=== PATIENT | female | born 1935 | race Caucasian/White ===

== ENCOUNTER 2016-08-18 07:55 | Emergency (ER) | payer MEDICARE, OTHER ==
[~2016-08-18] VITALS: Ht 172.7 cm; Wt 82.0 kg
[2016-08-18 08:01] VITALS: BP 140/79; PULSE 77; RESP 22; TEMP 97.5; O2SAT 93
[2016-08-18 08:13] VITALS: O2SAT 93
--- NOTE | 2016-08-18 08:16 | PD ---
HPI Chief Complaint: abdominal, back pain Time Seen by Provider: 08:01 Travel History International Travel<30 days: No Contact w/Intl Traveler<30days: No Traveled to known affect area: No History of Present Illness HPI 80yo F who denies any PMH presents to the ED with c/o lower back pain for 3 days. States it is sharp and comes around to epigastric region. Pain is worst with movement and so severe that "it takes her breath away". Denies any sob, chest pain, fever, cough, n/v, fall, urinary complaints, incontinence, focal weakness or numbness. States her call Dr. Mark's office and told her to come in. PFSH Past Medical History ?: Not Social History Tobacco Use: No Allergies-Medications (Allergen,Severity, Reaction): Coded Allergies: KELLY Inhibitors (Verified Allergy, Unknown, Cough, 08/18/16) Reported Meds & Prescriptions Reported Meds & Active Scripts Active Lortab (Hydrocodone-Acetaminophen) 5-325 Mg Tab 1 Tab PO Q6H PRN Reported Diltiazem ER 12 HR (Diltiazem HCl) 120 Mg Caper 120 Mg PO HS Ipratropium Nasal 0.06% [place] 2 [place] EACH NARE BID Vitamin D (Cholecalciferol) 2,000 Unit Tab Eliquis (Apixaban) 5 Mg Tab 5 Mg PO BID Bystolic (Nebivolol) 20 Mg Tab 20 Mg PO DAILY Calcium with Vit D Tablet (Calcium Citrate/Vitamin D2) 1 Each Tablet 1,000 Mg Synthroid (Levothyroxine Sodium) 50 Mcg Tab 50 Mcg PO DAILY Miralax Powder (Polyethylene Glycol 3350 Powder) 17 Gm Powd 17 Gm PO DAILY Mix and dissolve one measuring cap-ful (17 grams) in water or juice. Estradiol 0.5 Mg Tab 0.5 Mg PO DAILY Atorvastatin (Atorvastatin Calcium) 40 Mg Tab 40 Mg PO HS Review of Systems Except as stated in HPI: all other systems reviewed are Neg Physical Exam Narrative GENERAL: 80yo F in mild distress. SKIN: Focused skin assessment warm/dry. HEAD: Atraumatic. Normocephalic. NECK: Trachea midline. No JVD. CARDIOVASCULAR: Regular rate and rhythm. No murmur appreciated. RESPIRATORY: No accessory muscle use. Crackles in bilateral bases. O2 sat 92% on RA. GASTROINTESTINAL: Abdomen soft, +TTP epigastric and RUQ. No rebound tenderness or guarding. BACK: No midline ttp thoracic or lumbar spine. No CVA tenderness. Pain with movement. MUSCULOSKELETAL: No obvious deformities. No clubbing. No cyanosis. No edema. NEUROLOGICAL: Awake and alert. No obvious cranial nerve deficits. Motor grossly within normal limits. Normal speech. PSYCHIATRIC: Appropriate mood and affect; insight and judgment normal. Data Data Last Documented VS Vital Signs Date Time Temp Pulse Resp B/P Pulse Ox O2 Delivery O2 Flow Rate FiO2 08/18/16 10:04 82 20 140/84 95 Room Air 08/18/16 08:01 97.5 Orders Complete Blood Count With Diff (08/18/16 08:09) Comprehensive Metabolic Panel (08/18/16 08:09) Lipase (08/18/16 08:09) Prothrombin Time / Inr (Pt) (08/18/16 08:09) Act Partial Throm Time (Ptt) (08/18/16 08:09) Urinalysis - C+S If Indicated (08/18/16 08:09) Ct Abd/Pel W Iv Contrast(Rout) (08/18/16 08:09) Iv Access Insert/Monitor (08/18/16 08:09) Ecg Monitoring (08/18/16 08:09) Oximetry (08/18/16 08:09) Electrocardiogram (08/18/16 08:09) Troponin I (08/18/16 08:09) B-Type Natriuretic Peptide (08/18/16 08:09) Chest, Single Ap (08/18/16 ) Iohexol 350 Inj (Omnipaque 350 Inj) (08/18/16 09:52) Morphine Inj (Morphine Inj) (08/18/16 10:45) Labs Laboratory Tests Test 08/18/16 08/18/16 08/18/16 08/18/16 08:30 08:39 09:00 10:15 Sodium Level 137 MEQ/L Potassium Level 4.0 MEQ/L Chloride Level 106 MEQ/L Carbon Dioxide Level 21.0 MEQ/L Anion Gap 10 MEQ/L Blood Urea Nitrogen 16 MG/DL Creatinine 0.94 MG/DL Estimat Glomerular Filtration 57 ML/MIN Rate Random Glucose 101 MG/DL Calcium Level 9.3 MG/DL Total Bilirubin 1.2 MG/DL Aspartate Amino Transf 28 U/L (AST/SGOT) Alanine Aminotransferase 18 U/L (ALT/SGPT) Alkaline Phosphatase 152 U/L Troponin I LESS THAN 0.02 NG/ML B-Type Natriuretic Peptide 301 PG/ML Total Protein 7.2 GM/DL Albumin 3.2 GM/DL Lipase 75 U/L Prothrombin Time 16.7 SEC Prothromb Time International 1.5 RATIO Ratio Activated Partial 60.5 SEC Thromboplast Time White Blood Count 12.1 TH/MM3 Red Blood Count 4.80 MIL/MM3 Hemoglobin 15.2 GM/DL Hematocrit 45.3 % Mean Corpuscular Volume 94.4 FL Mean Corpuscular Hemoglobin 31.6 PG Mean Corpuscular Hemoglobin 33.4 % Concent Red Cell Distribution Width 14.3 % Platelet Count 215 TH/MM3 Mean Platelet Volume 10.0 FL Neutrophils (%) (Auto) 63.3 % Lymphocytes (%) (Auto) 24.6 % Monocytes (%) (Auto) 9.8 % Eosinophils (%) (Auto) 1.6 % Basophils (%) (Auto) 0.7 % Neutrophils # (Auto) 7.7 TH/MM3 Lymphocytes # (Auto) 3.0 TH/MM3 Monocytes # (Auto) 1.2 TH/MM3 Eosinophils # (Auto) 0.2 TH/MM3 Basophils # (Auto) 0.1 TH/MM3 CBC Comment DIFF FINAL Differential Comment Urine Color YELLOW Urine Turbidity CLEAR Urine pH 6.0 Urine Specific [place] 1.038 Urine Protein TRACE mg/dL Urine Glucose (UA) NEG mg/dL Urine Ketones 10 mg/dL Urine Occult Blood NEG Urine Nitrite NEG Urine Bilirubin NEG Urine Urobilinogen LESS THAN 2.0 MG/DL Urine Leukocyte Esterase MOD Urine RBC 1 /hpf Urine WBC 6 /hpf Urine Squamous Epithelial 2 /hpf Cells Urine Hyaline Casts 1 /lpf Urine Mucus FEW /lpf Microscopic Urinalysis Comment CULT NOT INDICATED MDM Medical Decision Making Medical Screen Exam Complete: Yes Emergency Medical Condition: Yes Differential Diagnosis Musculoskeletal pain vs. nephrolithiasis vs. pancreatitis vs. ACS Narrative Course 80yo F here with back pain and abdominal pain. States she has had the back pain before but abdominal pain is new. Labs reviewed, WBC 12.1. Troponin negative. Bilirubin mildly elevated at 1.2. INR elevated at 1.5. CXR negative for acute disease. Compensated cardiomegaly. CTa/p showed single gallstone in gallbladder. No biliary tract obstruction. No surrounding inflammatory changes. Diverticulosis. UA showed moderate leukocyte. WBC only 6. Culture not indicated. Pt reevaluated at bedside and abdomen is soft, NT/ ND after morphine. Back pain seemed very musculoskeletal. Discussed with Dr. Mark who states that she can follow up with him tomorrow and to prescribe a few hydrocodone for pain. Return precautions given. Diagnosis Primary Impression: Back pain Qualified Code: M54.9 - Chronic bilateral back pain, unspecified back location Patient Instructions: General Instructions Departure Forms: Tests/Procedures Additional Instructions: Please follow up with Dr. Mark at 11:30am tomorrow. Return to the ED if symptoms worsen. Med/Other Pt SpecificInfo: Prescription(s) given Scripts Hydrocodone-Acetaminophen (Lortab)5-325 Mg Tab1 Tab PO Q6H PRN (PAIN) #6 TAB Ref 0 Prov:Joselyn Vogt DO 08/18/16 Disposition: 01 DISCHARGE HOME Condition: Stable Joselyn Vogt DO Aug 18, 2016 08:16
[2016-08-18 09:00] LABS: APTT (PATIENT) 60.5 SEC (24.3-30.1); INTERNATIONAL NORMALIZED RATIO 1.5 RATIO; PROTHROMBIN TIME - PATIENT 16.7 SEC (9.8-11.6)
--- NOTE | 2016-08-18 09:02 | RADRPT ---
EXAM DATE/TIME: 08/18/2016 08:35 [facility] COMPARISON: No previous studies available for comparison. INDICATIONS : Left side chest pains radiating into left shoulder and upper back. MEDICAL HISTORY : Myocardial infarction. SURGICAL HISTORY : Pacemaker. ENCOUNTER: Initial ACUITY: 2 days PAIN SCORE: 9/10 LOCATION: Left chest FINDINGS: A single view of the chest demonstrates the lungs to be symmetrically aerated without evidence of mas s, infiltrate or effusion. The heart size is enlarged. There is a pacemaker overlying the left chest .. Osseous structures are intact. CONCLUSION: No acute disease. Compensated cardiomegaly. Jaret Aguirre MD on August 18, 2016 at 8:59 Board Certified Radiologist. This report was verified electronically.
[2016-08-18 09:06] LABS: ALT (GPT) 18 U/L (10-53)
[2016-08-18] MEDS ORDERED: MIRA3350 PO (09:07)
[2016-08-18] MEDS ORDERED: ATOR40TA16 PO (09:07)
[2016-08-18] MEDS ORDERED: ESTR0.5T PO (09:07)
[2016-08-18] MEDS ORDERED: CALC-262 (09:07)
[2016-08-18] MEDS ORDERED: LEVO.05 PO (09:07)
[2016-08-18 09:08] LABS: ANION GAP 10 MEQ/L (5-15); AST (GOT) 28 U/L (15-37); BLOOD UREA NITROGEN 16 MG/DL (7-18); CHLORIDE 106 MEQ/L (98-107); GLOMERULAR FILTRATION RATE 57 ML/MIN (>89); SODIUM (NA) 137 MEQ/L (136-145)
[2016-08-18 09:09] LABS: ALKALINE PHOSPHATASE 152 U/L (45-117); TOTAL BILIRUBIN ADULT 1.2 MG/DL (0.2-1.0)
[2016-08-18] MEDS ORDERED: NEBI20 PO (09:10)
[2016-08-18] MEDS ORDERED: IPRA0.06 EACH NARE (09:10)
[2016-08-18] MEDS ORDERED: VITA20003 (09:10)
[2016-08-18] MEDS ORDERED: DILT120C9 PO (09:10)
[2016-08-18] MEDS ORDERED: APIX5TAB PO (09:10)
[2016-08-18 09:28] LABS: AUTOMATED NEUTROPHIL # 7.7 TH/MM3 (1.8-7.7); BASOPHIL # 0.1 TH/MM3 (0-0.2); BASOPHIL % 0.7 % (0.0-2.0); EOSINOPHIL # 0.2 TH/MM3 (0-0.4); EOSINOPHIL % 1.6 % (0.0-4.0); HEMATOCRIT 45.3 % (35.0-46.0); HEMO FLAGS DIFF FINAL; LYMPH % 24.6 % (9.0-44.0); MEAN CELL VOLUME 94.4 FL (80.0-100.0); MEAN CORPUSCULAR HEMOGLOBIN 31.6 PG (27.0-34.0); MEAN CORPUSCULAR HGB CONC 33.4 % (32.0-36.0); MONO % 9.8 % (0.0-8.0); NEUT % 63.3 % (16.0-70.0); PLATELET COUNT 215 TH/MM3 (150-450); RED CELL DISTRIBUTION WIDTH 14.3 % (11.6-17.2); WHITE BLOOD COUNT 12.1 TH/MM3 (4.0-11.0)
[2016-08-18] MEDS ORDERED: IOHEXOL 350 MG/ML 10 ML VIAL (for RAD DIAG) IV ONE (09:52)
[2016-08-18 10:04] VITALS: BP 140/84; PULSE 82; RESP 20; O2SAT 95
--- NOTE | 2016-08-18 10:16 | RADRPT ---
EXAM DATE/TIME: 08/18/2016 09:49 [facility] COMPARISON: CHEST SINGLE AP, August 18, 2016, 8:35. INDICATIONS : Epigastric and back pain. IV CONTRAST: 96 cc Omnipaque 350 (iohexol) IV ORAL CONTRAST: No oral contrast ingested. RADIATION DOSE: 10.36 CTDIvol (mGy) MEDICAL HISTORY : None SURGICAL HISTORY : Pacemaker. ENCOUNTER: Initial ACUITY: 4 - 6 days PAIN SCALE: 4/10 LOCATION: upper quadrant TECHNIQUE: Volumetric scanning of the abdomen and pelvis was performed. Using automated exposure control and ad justment of the mA and/or kV according to patient size, radiation dose was kept as low as reasonably achievable to obtain optimal diagnostic quality images. DICOM format image data is available electro nically for review and comparison. FINDINGS: LOWER LUNGS: There some chronic scarring in both lung bases. LIVER: Homogeneous density without lesion. There is no dilation of the biliary tree. Single calcified galls tone in the gallbladder. No surrounding inflammatory changes.. SPLEEN: Normal size without lesion. PANCREAS: Within normal limits. KIDNEYS: Normal in size and shape. There is no mass, stone or hydronephrosis. ADRENAL GLANDS: Within normal limits. VASCULAR: There is no aortic aneurysm. BOWEL/MESENTERY: The stomach, small bowel, and colon demonstrate no acute abnormality. There is no free intraperitone al air or fluid. The appendix is unremarkable. There are some scattered diverticula along the sigmoid colon. No inflammatory changes. ABDOMINAL WALL: Within normal limits. RETROPERITONEUM: There is no lymphadenopathy. BLADDER: No wall thickening or mass. REPRODUCTIVE: Within normal limits. INGUINAL: There is no lymphadenopathy or hernia. MUSCULOSKELETAL: Within normal limits for patient age. Bony degenerative changes. CONCLUSION: 1. Single gallstone in the gallbladder. No biliary tract obstruction. No surrounding inflammatory dorothea nges. 2. Scattered diverticulosis of the sigmoid colon. 3. Scarring in both lung bases. Jaret Aguirre MD on August 18, 2016 at 10:11 Board Certified Radiologist. This report was verified electronically.
[2016-08-18] MEDS ORDERED: MORPHINE SULFATE 4 MG/ML INJ IV PUSH ONE (10:45)
[2016-08-18 10:50] LABS: BLOOD, URINE NEG (NEG); GLUCOSE,URINE NEG (NEG); HYALINE CAST, URINE 1 /lpf (RARE); KETONE, URINE 10 mg/dL (NEG); MUCUS URINE FEW /lpf (OCC); NITRITE,URINE NEG (NEG); SQUAMOUS EPITHELIAL CELL URINE 2 /hpf (0-5); URINE COLOR YELLOW (YELLW/STRAW)
[2016-08-18 10:54] LABS: COMMENT (UR) CULT NOT INDICATED; CULTURE IF INDICATED CULT NOT INDICATED
--- NOTE | 2016-08-18 10:56 | EKG ---
Date Performed: 08/18/2016 Time Performed: 08:41:19 PTAGE: 80 years EKG: ATRIAL FIBRILLATION DEMAND ELECTRONIC VENTRICULAR PACEMAKER LEFT ANTERIOR FASCICULAR BLOCK LEFT VENTRICULAR HYPERTROPHY NONSPECIFIC ST-T WAVE ABNORMALITY ABNORMAL ECG PREVIOUS TRACING : 12/03/1997 12.45 DOCTOR: Sg Montalvo Interpretating Date/Time 08/18/2016 10:54:44
[2016-08-18] MEDS ORDERED: HYDR-3533 PO (12:31)
== END 2016-08-18 13:23 | disposition home or self-care (01) ==
LOC: NEPC 07:55
DX: M54.9 Dorsalgia, unspecified (principal); R10.13 Epigastric pain; G89.29 Other chronic pain; R94.31 Abnormal electrocardiogram [ECG] [EKG]
CPT/HCPCS: 71010; 74177; 80053; 81001; 83690; 83880; 84484; 85025; 85610; 85730; 93005; 96374; 99285; J2270; Q9967